=== PATIENT | male | born 1940 | race Caucasian/White ===

== ENCOUNTER → 2018-08-16 12:50 | Outpatient (CLI) | payer OTHER, SELFPAY ==
[2018-08-16 13:45] LABS: Alanine Aminotransferase 24 IU/L (21-72); Aspartate Aminotransferase 24 IU/L (17-59); BUN Creatinine Ratio 16.4 (6-22); Blood Urea Nitrogen 18 mg/dL (9-20); Estimated Glomerular Filt Rate > 60.0 mL/min (>60)
== END ==
PROVIDERS: Visit Provider Physician Assistant Medical
DX: B35.1 Tinea unguium (principal); Z79.899 Other long term (current) drug therapy
CPT/HCPCS: 36415; 82565; 84450; 84460; 84520